=== PATIENT | female | born 1980 | race Caucasian/White ===

== ENCOUNTER → 2016-10-27 | Day surgery (SDC) | payer OTHER ==
[~2016-10-27] VITALS: Ht 172.7 cm; Wt 106.1 kg
[~2016-10-27] MED LIST: BOTULINUM INJ 100 UNITS (J0585) As Ordered ONE; BOTULINUM INJ 100 UNITS (J0585) XX ONE; CLAR10CA3 PO; FLON1SPR INH; IBUP40TA PO; LIDOCAINE 2% 5ML JELLY UROJET As Ordered ONE; LIDOCAINE 2% 5ML JELLY UROJET XX ONE; LIDOCAINE 2% INJ 100 MG/5 ML SDV (FOR ANES.) As Ordered ONE; LIDOCAINE 2% MDV 20 ML VIAL As Ordered ONE; LIDOCAINE 2% MDV 20 ML VIAL XX ONE; LR 1,000 ML IV SCH; MIDAZOLAM INJ 2 MG/2 ML VIAL (J2250) As Ordered ONE; MIREIUD IU; PROPOFOL 200 MG/20 ML VIAL As Ordered ONE; ceFAZolin 2 GM/D5W 50 ML IV BAG (J0690) As Ordered ONE; ePHEDrine SULFATE 25 MG/5 ML(5MG/ML) SYRINGE As Ordered ONE; fentaNYL 250 MCG/5 ML INJECTION (J3010) As Ordered ONE
[2016-10-27 07:44] LABS: CONTROL LINE UCG INT CTR LINE PRESENT
[2016-10-27 09:40] VITALS: BP 134/74
--- NOTE | 2016-10-27 20:35 | RO ---
DATE OF PROCEDURE: 10/27/2016 PREOPERATIVE DIAGNOSIS: Overactive bladder with urinary urgency, frequency, and urge incontinence. POSTOPERATIVE DIAGNOSIS: Overactive bladder with urinary urgency, frequency, and urge incontinence. PROCEDURE: Cystoscopy, hydrodistention, and intravesical Botox with 100 units. SURGEON: Dr. Margy Ramirez MOTORSPORTS TECHNICIAN: ANESTHESIA: MAC. MEDICATIONS: Ancef 2 grams preoperatively. FINDINGS: Total bladder capacity under anesthesia 650 mL without significant glomerular lesions or ulcerations found. HISTORY OF PRESENT ILLNESS: The patient is a 35-year-old female with complaints of urinary frequency every hour, urgency, and urge incontinence despite behavioral modification and three different anticholinergic medications in the past. She did not tolerate anticholinergics well due to constipation and Myrbetriq 50 mg also caused constipation. Urodynamic studies were done which showed urgency of 152 mL and a small bladder capacity of only 198 mL. After discussing all different options, alternatives, risks, and benefits, it was decided to bring the patient to the operating room for cystoscopy, hydrodistention, and intravesical Botox. The risks of the procedure included but was not limited to the risks of general anesthesia, reaction to medication, bleeding, infection, inefficacy with continued issues, and the biggest problem discussed was postoperative urinary retention which could require clean intermittent catheterization or a Victor catheter for up to 9 months to a year after the procedure until the medication has time to wear off. She also understands that the medication normally lasts anywhere from 6 months to a year. After discussing all different options, alternatives, risks, and benefits, she wanted to proceed with the procedure and informed consent was obtained in both verbal and written form. DESCRIPTION OF PROCEDURE: The patient was brought into the operating room. Sequential compression devices were in place along with thromboembolism deterrent (CAROLA) stockings. Preoperative antibiotics were given. Next, MAC anesthesia was given, and she was then placed in the lithotomy position. Careful attention was paid that her pressure points were well padded and protected. She was prepped and draped in the usual fashion. Next, a 22-L[place] cystoscope was inserted. The urethra was noted to be open without any evidence of lesions or strictures. At this point, the bladder was emptied and then filled with normal saline under gravity drainage. The bladder was filled and left distended for a total of 10 minutes and upon emptying, this showed a total bladder capacity of 650 mL. At this point, she was re-scoped and only had very small amount of glomerular lesion at the base of the bladder, and this was not consistent with findings of interstitial cystitis. There were no stones, erythematous patches, ulcerations, or other abnormalities. At this point, 100 units of Botox had been mixed with 10 mL of injectable saline. Next, using the needle through the cystoscope, one unit of Botox was injected in 10 different places in the bladder, including two injections on the trigone. The patient's water and normal saline was then changed to sterile water and the areas that were bleeding were fulgurated. A red rubber catheter was placed and 30cc of Lidocaine 2% with Lidocaine jelly was placed intravesically for post procedural pain control. The patient tolerated the procedure well and was returned in stable condition to the recovery room. KIARA
== END | disposition home or self-care (01) ==
LOC: M SDC 07:12
PROVIDERS: ATTEND Specialist
DX: N32.81 Overactive bladder (principal); N39.41 Urge incontinence; R35.0 Frequency of micturition; Z87.891 Personal history of nicotine dependence
CPT/HCPCS: 52260; 52287; 84703; C1815; J0585; J0690; J2250; J3010